=== PATIENT | male | born 1975 | race Caucasian/White ===

== ENCOUNTER 2016-12-08 18:49 | Emergency (ER) | payer MEDICAID, OTHER ==
[~2016-12-08] VITALS: Ht 177.8 cm; Wt 79.4 kg
[2016-12-08 18:53] VITALS: BP 118/90; PULSE 109; RESP 16; TEMP 97.9; O2SAT 97
[2016-12-08] MEDS ORDERED: SODIUM CHLOR 0.9% 1000 ML INJ 1,000 ML IV SCH (20:02)
--- NOTE | 2016-12-08 20:05 | PD ---
HPI Chief Complaint: Abdominal Pain Time Seen by Provider: 19:40 Travel History International Travel<30 days: No Contact w/Intl Traveler<30days: No Traveled to known affect area: No History of Present Illness HPI The patient is a 41-year-old male homeless alcoholic who complains of midline epigastric pain since this morning. He admits to drinking one beer today. The last time he was here is alcohol level is over 400. He denies any melanotic or bloody stools. He denies any nausea or vomiting or diarrhea. [facility] Social History Alcohol Use: Yes (1/2 gallon of vodka daily) Tobacco Use: Yes (cigars) Substance Use: Yes (ETOH daily - beer last night per pt; records indicate Vodka too. ) Allergies-Medications (Allergen,Severity, Reaction): Coded Allergies: No Known Allergies (Unverified , 12/08/16) Reported Meds & Prescriptions Reported Meds & Active Scripts Active No Active Prescriptions or Reported Medications Review of Systems Except as stated in HPI: all other systems reviewed are Neg Physical Exam Narrative GENERAL: The patient is alert, oriented 3 who smells of beer. His vital signs show heart rate of 109 but are otherwise normal. SKIN: Focused skin assessment warm/dry. HEAD: Atraumatic. Normocephalic. EYES: Pupils equal and round. No scleral icterus. No injection or drainage. ENT: No nasal bleeding or discharge. Mucous membranes pink and moist. NECK: Trachea midline. No JVD. CARDIOVASCULAR: Regular rate and rhythm. No murmur appreciated. RESPIRATORY: No accessory muscle use. Clear to auscultation. Breath sounds equal bilaterally. GASTROINTESTINAL: Abdomen soft, non-tender, nondistended. Hepatic and splenic margins not palpable. MUSCULOSKELETAL: No obvious deformities. No clubbing. No cyanosis. No edema. NEUROLOGICAL: Awake and alert. No obvious cranial nerve deficits. Motor grossly within normal limits. Normal speech. PSYCHIATRIC: The patient appears to be slightly intoxicated; insight and judgment normal. Data Data Last Documented VS Vital Signs Date Time Temp Pulse Resp B/P Pulse Ox O2 Delivery O2 Flow Rate FiO2 12/08/16 18:53 97.9 109 16 118/90 97 Orders Complete Blood Count With Diff (12/08/16 20:02) Comprehensive Metabolic Panel (12/08/16 20:02) Lipase (12/08/16 20:02) Urinalysis - C+S If Indicated (12/08/16 20:02) Iv Access Insert/Monitor (12/08/16 20:02) Ecg Monitoring (12/08/16 20:02) Oximetry (12/08/16 20:02) Ondansetron Inj (Zofran Inj) (12/08/16 20:15) Pantoprazole Inj (Protonix Inj) (12/08/16 20:15) Sodium Chlor 0.9% 1000 Ml Inj (Ns 1000 M (12/08/16 20:02) Sodium Chloride 0.9% Flush (Ns Flush) (12/08/16 20:15) Famotidine Inj (Pepcid Inj) (12/08/16 20:15) Al-Mag Hy-Si 40-40-4 Mg/Ml Liq (Mag-Al P (12/08/16 20:15) Lidocaine 2% Viscous (Xylocaine 2% Visco (12/08/16 20:15) Alcohol (Ethanol) (12/08/16 20:30) MDM Medical Decision Making Medical Screen Exam Complete: Yes Emergency Medical Condition: Yes Medical Record Reviewed: Yes Differential Diagnosis Alcohol intoxication, GERD, alcohol gastritis, malingering to obtain pain medications Narrative Course The patient requested something for pain. When he did not get it he left. The patient likely was malingering for pain medications. Diagnosis Primary Impression: Malingering Additional Impression: Alcohol abuse Additional Instructions: The patient was told to discontinue alcohol. Med/Other Pt SpecificInfo: No Change to Meds Scripts No Active Prescriptions or Reported Meds Disposition: 07 AGAINST MEDICAL ADVICE Condition: Leopoldo Arrieta MD Dec 08, 2016 20:05
[2016-12-08] MEDS ORDERED: PANTOPRAZOLE SODIUM 40 MG VIAL IVP ONE (20:15)
[2016-12-08] MEDS ORDERED: LIDOCAINE VISCOUS 2% SOLN 15 ML UDC PO ONE (20:15)
[2016-12-08] MEDS ORDERED: ONDANSETRON HCL 4 MG/2 ML VIAL IVP ONE (20:15)
[2016-12-08] MEDS ORDERED: ALUMINUM/MAGNESIUM/SIMETH 30 ML CUP PO ONE (20:15)
[2016-12-08] MEDS ORDERED: SODIUM CHLORIDE 0.9% FLUSH 10 ML FLUSH IV FLUSH PRN (20:15)
[2016-12-08] MEDS ORDERED: FAMOTIDINE 20 MG/2 ML VIAL IV PUSH ONE (20:15)
[2016-12-09] MEDS ORDERED: TRAM50TA PO (14:20)
== END 2016-12-08 20:35 | disposition left against medical advice (07) ==
LOC: PHED 18:49
DX: Z76.5 Malingerer [conscious simulation] (principal); F10.10 Alcohol abuse, uncomplicated; Z53.21 Procedure and treatment not carried out due to patient leaving prior to being seen by health care provider; Z72.0 Tobacco use
CPT/HCPCS: 99283

== ENCOUNTER 2016-12-09 12:13 | Emergency (ER) | payer MEDICAID, OTHER ==
[~2016-12-09] VITALS: Ht 177.8 cm; Wt 78.0 kg
[2016-12-09 12:15] VITALS: BP 130/88; PULSE 120; RESP 18; TEMP 97.8; O2SAT 98
--- NOTE | 2016-12-09 12:51 | PD ---
HPI Chief Complaint: Abdominal Pain Time Seen by Provider: 12:41 Travel History International Travel<30 days: No Contact w/Intl Traveler<30days: No Traveled to known affect area: No History of Present Illness HPI This patient complains of abdominal pain. Location is epigastrium. Severity is moderate. However it is improved spontaneously without alleviating factors and now is largely gone. No vomiting or diarrhea or fever. He is a local alcoholic who was seen here yesterday evening. He was diagnosed with malingering. He left after he didn't get pain medication. PFSH Past Medical History ?: Not Social History Alcohol Use: Yes (1/2 gallon of vodka daily) Tobacco Use: Yes (cigars) Substance Use: Yes (ETOH daily - beer last night per pt; records indicate Vodka too. ) Allergies-Medications (Allergen,Severity, Reaction): Coded Allergies: No Known Allergies (Unverified , 12/09/16) Reported Meds & Prescriptions Reported Meds & Active Scripts Active No Active Prescriptions or Reported Medications Review of Systems General / Constitutional: No: Fever Eyes: No: Visual changes HENT: No: Headaches Cardiovascular: No: Chest Pain or Discomfort Respiratory: No: Shortness of Breath Gastrointestinal: Positive: Abdominal Pain Genitourinary: No: Dysuria Musculoskeletal: No: Pain Skin: No Rash Neurologic: No: Weakness Psychiatric: Positive: Substance Abuse, No: Depression Endocrine: No: Polydipsia Hematologic/Lymphatic: No: Easy Bruising Physical Exam Narrative GENERAL: Well-nourished, well-developed patient in no apparent distress. SKIN: Focused skin assessment reveals no rash and nodules. Skin is Warm and dry. HEAD: Atraumatic. Normocephalic. EYES: Pupils equal and round. No scleral icterus. No injection or drainage. ENT: No nasal bleeding or discharge. Mucous membranes pink and moist. NECK: Trachea midline. No JVD. CARDIOVASCULAR: Regular rate and rhythm. No murmur appreciated. RESPIRATORY: No accessory muscle use. Clear to auscultation. Breath sounds equal bilaterally. GASTROINTESTINAL: Abdomen soft, non-tender, nondistended. Hepatic and splenic margins not palpable. MUSCULOSKELETAL: No obvious deformities. No clubbing. No cyanosis. No edema. NEUROLOGICAL: Awake and alert. No obvious cranial nerve deficits. Motor grossly within normal limits. Normal speech. PSYCHIATRIC: Appropriate mood and affect; insight and judgment poor. Data Data Last Documented VS Vital Signs Date Time Temp Pulse Resp B/P Pulse Ox O2 Delivery O2 Flow Rate FiO2 12/09/16 12:15 97.8 120 18 130/88 98 Orders Iv Access Insert/Monitor (12/09/16 12:48) Complete Blood Count With Diff (12/09/16 12:48) Comprehensive Metabolic Panel (12/09/16 12:48) Lipase (12/09/16 12:48) Alcohol (Ethanol) (12/09/16 13:06) Labs Laboratory Tests Test 12/09/16 13:06 White Blood Count 11.9 TH/MM3 Red Blood Count 4.43 MIL/MM3 Hemoglobin 14.6 GM/DL Hematocrit 43.1 % Mean Corpuscular Volume 97.3 FL Mean Corpuscular Hemoglobin 33.0 PG Mean Corpuscular Hemoglobin 33.9 % Concent Red Cell Distribution Width 13.4 % Platelet Count 343 TH/MM3 Mean Platelet Volume 6.9 FL Neutrophils (%) (Auto) 78.8 % Lymphocytes (%) (Auto) 12.2 % Monocytes (%) (Auto) 5.6 % Eosinophils (%) (Auto) 0.4 % Basophils (%) (Auto) 3.0 % Neutrophils # (Auto) 9.4 TH/MM3 Lymphocytes # (Auto) 1.4 TH/MM3 Monocytes # (Auto) 0.7 TH/MM3 Eosinophils # (Auto) 0.0 TH/MM3 Basophils # (Auto) 0.4 TH/MM3 CBC Comment DIFF FINAL Differential Comment Sodium Level 140 MEQ/L Potassium Level 3.3 MEQ/L Chloride Level 103 MEQ/L Carbon Dioxide Level 27.0 MEQ/L Anion Gap 10 MEQ/L Blood Urea Nitrogen 6 MG/DL Creatinine 0.85 MG/DL Estimat Glomerular Filtration 100 ML/MIN Rate Random Glucose 99 MG/DL Calcium Level 8.8 MG/DL Total Bilirubin 0.4 MG/DL Aspartate Amino Transf 21 U/L (AST/SGOT) Alanine Aminotransferase 17 U/L (ALT/SGPT) Alkaline Phosphatase 189 U/L Total Protein 8.0 GM/DL Albumin 3.2 GM/DL Lipase 335 U/L Ethyl Alcohol Level 114 MG/DL [facility] Medical Decision Making Medical Screen Exam Complete: Yes Emergency Medical Condition: Yes Medical Record Reviewed: Yes Differential Diagnosis Differential diagnosis includes pancreatitis, biliary colic, hepatitis, GERD, peptic ulcer disease. Narrative Course I have reviewed the patient's electronic medical record. Reviewed his visit from last night IV placed CBC is normal Metabolic profile is normal LFTs are normal Lipase is normal Alcohol level is 114 Patient's abdomen is soft and benign and nontender. His pain has resolved. I wrote him a dozen tramadol. He is warned not to use it with alcohol and to watch for sedation. He needs to quit drinking and follow up with [facility] rehabilitation services Diagnosis Primary Impression: Acute epigastric pain Additional Impression: Alcohol intoxication in active alcoholic Qualified Code: F10.229 - Alcohol intoxication in active alcoholic, with unspecified complication Additional Instructions: The patient was advised to follow up with their physician and return if they worsen. The patient was warned about potential sedation for the medications they will receive on prescription. Recommend [facility] services Med/Other Pt SpecificInfo: Prescription(s) given Scripts Tramadol 50 Mg Tab50 Mg PO Q6H PRN (PAIN) #12 TAB Ref 0 Prov:Landon Rubin MD 12/09/16 Disposition: 01 DISCHARGE HOME Condition: Stable Landon Rubin MD Dec 09, 2016 12:51
[2016-12-09 13:20] LABS: AUTOMATED NEUTROPHIL # 9.4 TH/MM3 (1.8-7.7); BASOPHIL # 0.4 TH/MM3 (0-0.2); EOSINOPHIL % 0.4 % (0.0-4.0); HEMATOCRIT 43.1 % (39.0-51.0); LYMPH % 12.2 % (9.0-44.0); LYMPHOCYTE # 1.4 TH/MM3 (1.0-4.8); MEAN CELL VOLUME 97.3 FL (80.0-100.0); MEAN CORPUSCULAR HGB CONC 33.9 % (32.0-36.0); MONO % 5.6 % (0.0-8.0); NEUT % 78.8 % (16.0-70.0); PLATELET COUNT 343 TH/MM3 (150-450); RED BLOOD COUNT 4.43 MIL/MM3 (4.50-5.90); RED CELL DISTRIBUTION WIDTH 13.4 % (11.6-17.2); WHITE BLOOD COUNT 11.9 TH/MM3 (4.0-11.0)
[2016-12-09 13:24] LABS: HEMO FLAGS DIFF FINAL
[2016-12-09 13:30] LABS: CHLORIDE 103 MEQ/L (98-107); POTASSIUM 3.3 MEQ/L (3.5-5.1); SODIUM (NA) 140 MEQ/L (136-145)
[2016-12-09 13:37] LABS: ANION GAP 10 MEQ/L (5-15); BLOOD UREA NITROGEN 6 MG/DL (7-18)
[2016-12-09 13:39] LABS: ALT (GPT) 17 U/L (12-78); AST (GOT) 21 U/L (15-37)
[2016-12-09 13:40] LABS: GLOMERULAR FILTRATION RATE 100 ML/MIN (>89)
[2016-12-09 13:41] LABS: TOTAL BILIRUBIN ADULT 0.4 MG/DL (0.2-1.0)
[2016-12-09 13:42] LABS: ALKALINE PHOSPHATASE 189 U/L (45-117)
[2016-12-09] MEDS ORDERED: TRAM50TA PO (14:20)
== END 2016-12-09 14:38 | disposition home or self-care (01) ==
LOC: PHED 12:13
DX: R10.13 Epigastric pain (principal); F10.229 Alcohol dependence with intoxication, unspecified; Y90.5 Blood alcohol level of 100-119 mg/100 ml; Z72.0 Tobacco use
CPT/HCPCS: 80053; 80307; 83690; 85025; 99284

== ENCOUNTER 2017-10-14 16:48 | Inpatient (IN) | payer MEDICAID ==
[~2017-10-14] VITALS: Ht 177.8 cm; Wt 77.8 kg
[~2017-10-14 16:48] MED LIST: TRAM50TA PO
[2017-10-14 16:53] VITALS: BP 140/93; PULSE 111; RESP 18; TEMP 97.4; O2SAT 99
[2017-10-14] MEDS ORDERED: SODIUM CHLOR 0.9% 1000 ML INJ 1,000 ML IV SCH (17:37)
[2017-10-14] MEDS ORDERED: ONDANSETRON HCL 4 MG/2 ML VIAL IVP ONE (17:45)
[2017-10-14] MEDS ORDERED: SODIUM CHLORIDE 0.9% FLUSH 10 ML FLUSH IV FLUSH PRN ×2 (17:45→21:00)
[2017-10-14] MEDS ORDERED: KETOROLAC TROMETHAMINE 30 MG/ML (IVP) VIAL IVP ONE (17:45)
--- NOTE | 2017-10-14 17:48 | PD ---
HPI Chief Complaint: Abdominal Pain Time Seen by Provider: 17:30 Travel History International Travel<30 days: No Contact w/Intl Traveler<30days: No Traveled to known affect area: No History of Present Illness HPI This is a 42-year-old male with history of pancreatitis who presents for abdominal pain. He states that he has had 3 days of epigastric pain. Crampy in nature. Onset gradual. Aggravated by drinking alcohol. He states that the first 2 days, he had a few episodes of nausea and nonbilious, nonbloody emesis but none since. He is trying to drink plenty of water. No diarrhea, melena, hematochezia. No urinary urgency, frequency, dysuria, hematuria. Prior treatment includes aspirin which is an alleviating factor. No associated fever , chills, cough, congestion. No chest pain or shortness of breath. Patient adamantly and repeatedly denies IV drug abuse. PFSH Past Medical History Diminished Hearing: No Pancreatitis: Yes Past Surgical History Surgical History: No Previous Surgery Social History Alcohol Use: Yes (heavy) Tobacco Use: Yes (cigars) Substance Use: No Allergies-Medications (Allergen,Severity, Reaction): Coded Allergies: No Known Allergies (Unverified Adverse Reaction, Unknown, 10/14/17) Reported Meds & Prescriptions Reported Meds & Active Scripts Active Review of Systems Except as stated in HPI: all other systems reviewed are Neg Physical Exam Narrative GENERAL: Alert, well nourished, well appearing patient resting on the bed in no acute distress. Vital Signs reviewed SKIN: Focused skin assessment warm/dry. HEAD: Atraumatic. Normocephalic. EYES: Pupils equal and round. No scleral icterus. No injection or drainage. ENT: No nasal bleeding or discharge. Mucous membranes pink and moist. NECK: Trachea midline. No JVD. Spontaneous, painless full range of motion with no meningismus CARDIOVASCULAR: Regular rate and rhythm. No murmur appreciated. Extremities warm and well perfused with bounding peripheral pulses RESPIRATORY: No accessory muscle use. Clear to auscultation. Breath sounds equal bilaterally. Breathing easily and speaking in full sentences GASTROINTESTINAL: Abdomen soft, Minimally tender in epigastrium, not present on distracted exam,, nondistended. Normal bowel sounds. No rigid, rebound, guarding. No tenderness at McBurney's point. Negative Treadwell sign MUSCULOSKELETAL: No obvious deformities. No clubbing. No cyanosis. No edema. Compartments are soft NEUROLOGICAL: Awake and alert. No obvious cranial nerve deficits. Motor grossly within normal limits. Normal speech. Sensation intact. Normal gait PSYCHIATRIC: Appropriate mood and affect; insight and judgment normal. Data Data Last Documented VS Vital Signs Date Time Temp Pulse Resp B/P (MAP) Pulse Ox O2 Delivery O2 Flow Rate FiO2 10/14/17 19:00 99 16 129/80 (96) 100 Room Air 10/14/17 16:53 97.4 Orders Orders Urinalysis - C+S If Indicated (10/14/17 17:05) Complete Blood Count With Diff (10/14/17 17:37) Comprehensive Metabolic Panel (10/14/17 17:37) Lipase (10/14/17 17:37) Ct Abd/Pel W Iv Contrast(Rout) (10/14/17 17:37) Iv Access Insert/Monitor (10/14/17 17:37) Ecg Monitoring (10/14/17 17:37) Oximetry (10/14/17 17:37) Ondansetron Inj (Zofran Inj) (10/14/17 17:45) Sodium Chlor 0.9% 1000 Ml Inj (Ns 1000 M (10/14/17 17:37) Sodium Chloride 0.9% Flush (Ns Flush) (10/14/17 17:45) Ketorolac Inj (Toradol Inj) (10/14/17 17:45) Iohexol 350 Inj (Omnipaque 350 Inj) (10/14/17 18:29) Morphine Inj (Morphine Inj) (10/14/17 19:00) Labs Laboratory Tests Test 10/14/17 17:55 White Blood Count 8.0 TH/MM3 Red Blood Count 4.69 MIL/MM3 Hemoglobin 16.6 GM/DL Hematocrit 46.1 % Mean Corpuscular Volume 98.2 FL Mean Corpuscular Hemoglobin 35.4 PG Mean Corpuscular Hemoglobin Concent 36.1 % Red Cell Distribution Width 13.3 % Platelet Count 282 TH/MM3 Mean Platelet Volume 7.9 FL Neutrophils (%) (Auto) 67.1 % Lymphocytes (%) (Auto) 22.7 % Monocytes (%) (Auto) 7.2 % Eosinophils (%) (Auto) 1.3 % Basophils (%) (Auto) 1.7 % Neutrophils # (Auto) 5.4 TH/MM3 Lymphocytes # (Auto) 1.8 TH/MM3 Monocytes # (Auto) 0.6 TH/MM3 Eosinophils # (Auto) 0.1 TH/MM3 Basophils # (Auto) 0.1 TH/MM3 CBC Comment AUTO DIFF Blood Urea Nitrogen 11 MG/DL Creatinine 0.84 MG/DL Random Glucose 79 MG/DL Total Protein 8.8 GM/DL Albumin 3.9 GM/DL Calcium Level 9.3 MG/DL Alkaline Phosphatase 101 U/L Aspartate Amino Transf (AST/SGOT) 13 U/L Alanine Aminotransferase (ALT/SGPT) 12 U/L Total Bilirubin 0.4 MG/DL Sodium Level 132 MEQ/L Potassium Level 3.6 MEQ/L Chloride Level 100 MEQ/L Carbon Dioxide Level 21.8 MEQ/L Anion Gap 10 MEQ/L Estimat Glomerular Filtration Rate 101 ML/MIN Lipase 574 U/L [facility] Medical Decision Making Medical Screen Exam Complete: Yes Emergency Medical Condition: Yes Medical Record Reviewed: Yes Interpretation(s) Last 24 hours Impressions Abdomen/Pelvis CT 10/14/17 [id number] Signed Impressions: Service Date/Time: Saturday, October 14, 2017 18:15 - CONCLUSION: Abnormal proximal pancreas with imaging features characteristic of acute on chronic pancreatitis. There is mild dilatation of the pancreatic duct body and tell up to 3.5 mm. Regional adenopathy and small caliber varices in the gastrohepatic ligament. Federico Young MD Differential Diagnosis Gastritis, peptic ulcer disease, alcohol abuse, pancreatitis, biliary colic Narrative Course IV access was established. Labs, imaging were ordered. As of change of shift, patient's workup is still in progress. Care has been signed out to the oncoming emergency physician. Further evaluation, care and disposition decisions will be per Dr. Yarbrough. Diagnosis Primary Impression: Acute pancreatitis Qualified Codes: K85.90 - Acute pancreatitis without necrosis or infection, unspecified Ivanna Jimenez MD Oct 14, 2017 17:48
[2017-10-14 18:07] VITALS: O2SAT 98
[2017-10-14] MEDS ORDERED: IOHEXOL 350 MG/ML 10 ML VIAL (for RAD DIAG) IVCONTRAST ONE (18:29)
[2017-10-14 18:41] LABS: AUTOMATED NEUTROPHIL # 5.4 TH/MM3 (1.8-7.7); BASOPHIL # 0.1 TH/MM3 (0-0.2); BASOPHIL % 1.7 % (0.0-2.0); EOSINOPHIL # 0.1 TH/MM3 (0-0.4); EOSINOPHIL % 1.3 % (0.0-4.0); HEMATOCRIT 46.1 % (39.0-51.0); HEMOGLOBIN 16.6 GM/DL (13.0-17.0); LYMPH % 22.7 % (9.0-44.0); LYMPHOCYTE # 1.8 TH/MM3 (1.0-4.8); MEAN CELL VOLUME 98.2 FL (80.0-100.0); MEAN CORPUSCULAR HEMOGLOBIN 35.4 PG (27.0-34.0); MEAN PLATELET VOLUME 7.9 FL (7.0-11.0); MONO % 7.2 % (0.0-8.0); MONOCYTE # 0.6 TH/MM3 (0-0.9); NEUT % 67.1 % (16.0-70.0); PLATELET COUNT 282 TH/MM3 (150-450); RED BLOOD COUNT 4.69 MIL/MM3 (4.50-5.90); RED CELL DISTRIBUTION WIDTH 13.3 % (11.6-17.2)
--- NOTE | 2017-10-14 18:43 | RADRPT ---
EXAM DATE/TIME: 10/14/2017 18:15 [facility] COMPARISON: No previous studies available for comparison. INDICATIONS : Abdominal pain x 3 days. IV CONTRAST: 75 cc Omnipaque 350 (iohexol) IV ORAL CONTRAST: No oral contrast ingested. RADIATION DOSE: 10.69 CTDIvol (mGy) MEDICAL HISTORY : Pancreatitis. Heavy alcohol SURGICAL HISTORY : None. ENCOUNTER: Initial ACUITY: 3 days PAIN SCALE: 10/10 LOCATION: abdominal diffuse TECHNIQUE: Volumetric scanning of the abdomen and pelvis was performed. Using automated exposure control and ad justment of the mA and/or kV according to patient size, radiation dose was kept as low as reasonably achievable to obtain optimal diagnostic quality images. DICOM format image data is available electro nically for review and comparison. FINDINGS: Lung bases are clear. Osseous structures are intact. No pleural or pericardial effusions. Liver unrem arkable. Spleen, adrenals, kidneys, urinary bladder unremarkable. Prostatic calcifications are noted. No evidence of bowel obstruction. There are small caliber varices noted in the gastrohepatic ligamen t. There are inflammatory changes seen and masslike enlargement of the head and uncinate process of t he pancreas with multiple punctate calcifications seen. On axial image 32 this measures 5.7 x 3 8 cm in transverse and AP dimension. There is mild induration of the peripancreatic fat and increased numb er of regional lymph nodes are noted in this region. The gallbladder is contracted. CONCLUSION: Abnormal proximal pancreas with imaging features characteristic of acute on chronic pancreatitis. The re is mild dilatation of the pancreatic duct body and tell up to 3.5 mm. Regional adenopathy and smal l caliber varices in the gastrohepatic ligament. Federico Young MD on October 14, 2017 at 18:40 Board Certified Radiologist. This report was verified electronically.
[2017-10-14 18:47] LABS: CHLORIDE 100 MEQ/L (98-107); SODIUM (NA) 132 MEQ/L (136-145)
[2017-10-14 18:51] LABS: ALBUMIN 3.9 GM/DL (3.4-5.0); CALCIUM 9.3 MG/DL (8.5-10.1)
[2017-10-14 18:52] LABS: BICARBONATE 21.8 MEQ/L (21.0-32.0); BLOOD UREA NITROGEN 11 MG/DL (7-18); GLUCOSE,RANDOM 79 MG/DL (74-106)
[2017-10-14 18:54] LABS: ALT (GPT) 12 U/L (12-78); AST (GOT) 13 U/L (15-37); BILIRUBIN, URINE NEG (NEG); BLOOD, URINE NEG (NEG); CREATININE 0.84 MG/DL (0.60-1.30); GLOMERULAR FILTRATION RATE 101 ML/MIN (>89); GLUCOSE,URINE NEG (NEG); KETONE, URINE TRACE mg/dL (NEG); NITRITE,URINE NEG (NEG); PH, URINE 6.5 (5.0-8.5); URINE COLOR YELLOW (YELLW/STRAW); URINE LEUKOCYTE ESTERASE NEG (NEG)
[2017-10-14 18:56] LABS: TOTAL BILIRUBIN ADULT 0.4 MG/DL (0.2-1.0); TOTAL PROTEIN 8.8 GM/DL (6.4-8.2)
[2017-10-14 18:57] LABS: ALKALINE PHOSPHATASE 101 U/L (45-117)
[2017-10-14 18:58] LABS: MEAN CORPUSCULAR HGB CONC 36.1 % (32.0-36.0)
[2017-10-14 19:00] VITALS: BP 129/80; PULSE 99; RESP 16; O2SAT 100
[2017-10-14] MEDS ORDERED: MORPHINE SULFATE 4 MG/ML INJ IV PUSH ONE (19:00)
[2017-10-14 19:16] LABS: AMORPHOUS SEDIMENT, URINE MOD; MUCUS URINE OCC /lpf (OCC); SQUAMOUS EPITHELIAL CELL URINE 0-5 /hpf (0-5)
--- NOTE | 2017-10-14 20:15 | RADRPT ---
EXAM DATE/TIME: 10/14/2017 19:41 [facility] COMPARISON: CT ABDOMEN & PELVIS W CONTRAST, October 14, 2017, 18:15. INDICATIONS : Right upper quadrant pain. MEDICAL HISTORY : Pancreatitis. Alcohol use. Tobacco use. SURGICAL HISTORY : None. ENCOUNTER: Initial ACUITY: 7-11 months PAIN SCORE: 5/10 LOCATION: Right upper quadrant MEASUREMENTS: LIVER: 17.1 cm length COMMON DUCT: 4 mm RIGHT KIDNEY: 10.3 x 4.9 x 5.2 cm FINDINGS: LIVER: Mild hepatomegaly without focal mass. COMMON DUCT: No intraluminal mass or stone visualized. GALLBLADDER: There are no gallstones however there is mild wall thickening. The gallbladder is mildly contracted. PANCREAS: Not clearly seen. RIGHT KIDNEY: No evidence of hydronephrosis, stone, or mass. CONCLUSION: 1. There is mild gallbladder wall thickening which appears mildly contracted. No pericholecystic flui d or cholelithiasis. 2. Pancreas not seen. 3. Borderline hepatomegaly. Federico Young MD on October 14, 2017 at 20:13 Board Certified Radiologist. This report was verified electronically.
[2017-10-14 20:45] VITALS: BP 125/77; PULSE 87; RESP 16; O2SAT 100
[2017-10-14] MEDS ORDERED: LORazepam 2 MG/ML VIAL IV PUSH PRN ×8 (20:45→21:00)
[2017-10-14] MEDS ORDERED: LORazepam 1 MG TAB PO PRN (20:45)
[2017-10-14] MEDS ORDERED: FLUMAZENIL 0.5 MG/5 ML VIAL IV PUSH PRN ×2 (20:45→21:00)
[2017-10-14] MEDS ORDERED: LORazepam 2 MG TAB PO PRN (20:45)
--- NOTE | 2017-10-14 20:48 | PD ---
Physical Exam Narrative Patient's anatomy it should change, pending remainder laboratory examinations and reevaluation. Patient is a chronic alcoholic who has a history of pancreatitis in the past,, who has an elevated lipase, epigastric pain, and CT that reveals a chronic pancreatitis with possible chronic phlegmon with acute inflammation surrounding. Patient's workup augmented by a right upper quadrant ultrasound gallbladder is contracted, there is no dilated common duct seen. Case was discussed with hospitalist service Emili nurse practitioner, accepted under Dr. Medrano's service for admission to the [facility] for acute pancreatitis. Patient was put on CIWA protocol Data Data Last Documented VS Vital Signs Date Time Temp Pulse Resp B/P (MAP) Pulse Ox O2 Delivery O2 Flow Rate FiO2 10/14/17 19:00 99 16 129/80 (96) 100 Room Air 10/14/17 16:53 97.4 Orders Orders Urinalysis - C+S If Indicated (10/14/17 17:05) Complete Blood Count With Diff (10/14/17 17:37) Comprehensive Metabolic Panel (10/14/17 17:37) Lipase (10/14/17 17:37) Ct Abd/Pel W Iv Contrast(Rout) (10/14/17 17:37) Iv Access Insert/Monitor (10/14/17 17:37) Ecg Monitoring (10/14/17 17:37) Oximetry (10/14/17 17:37) Ondansetron Inj (Zofran Inj) (10/14/17 17:45) Sodium Chlor 0.9% 1000 Ml Inj (Ns 1000 M (10/14/17 17:37) Sodium Chloride 0.9% Flush (Ns Flush) (10/14/17 17:45) Ketorolac Inj (Toradol Inj) (10/14/17 17:45) Iohexol 350 Inj (Omnipaque 350 Inj) (10/14/17 18:29) Morphine Inj (Morphine Inj) (10/14/17 19:00) Us Abdomen Gallbladder (10/14/17 ) Admit Order (Ed Use Only) (10/14/17 20:43) Alcohol Withdrawal Asmt-Ciwa Q4HX18 (10/14/17 20:43) Flumazenil Inj (Romazicon Inj) (10/14/17 20:45) Lorazepam (Ativan) (10/14/17 20:45) Lorazepam Inj (Ativan Inj) (10/14/17 20:45) Lorazepam (Ativan) (10/14/17 20:45) Lorazepam Inj (Ativan Inj) (10/14/17 20:45) Lorazepam Inj (Ativan Inj) (10/14/17 20:45) Lorazepam Inj (Ativan Inj) (10/14/17 20:45) Labs Laboratory Tests Test 10/14/17 17:55 White Blood Count 8.0 TH/MM3 Red Blood Count 4.69 MIL/MM3 Hemoglobin 16.6 GM/DL Hematocrit 46.1 % Mean Corpuscular Volume 98.2 FL Mean Corpuscular Hemoglobin 35.4 PG Mean Corpuscular Hemoglobin Concent 36.1 % Red Cell Distribution Width 13.3 % Platelet Count 282 TH/MM3 Mean Platelet Volume 7.9 FL Neutrophils (%) (Auto) 67.1 % Lymphocytes (%) (Auto) 22.7 % Monocytes (%) (Auto) 7.2 % Eosinophils (%) (Auto) 1.3 % Basophils (%) (Auto) 1.7 % Neutrophils # (Auto) 5.4 TH/MM3 Lymphocytes # (Auto) 1.8 TH/MM3 Monocytes # (Auto) 0.6 TH/MM3 Eosinophils # (Auto) 0.1 TH/MM3 Basophils # (Auto) 0.1 TH/MM3 CBC Comment AUTO DIFF Differential Comment AUTO DIFF CONFIRMED Platelet Estimate NORMAL Platelet Morphology Comment NORMAL Urine Collection Type CLEAN CATCH Urine Color YELLOW Urine Turbidity SL CLOUDY Urine pH 6.5 Urine Specific [place] 1.015 Urine Protein TRACE mg/dL Urine Glucose (UA) NEG mg/dL Urine Ketones TRACE mg/dL Urine Occult Blood NEG Urine Nitrite NEG Urine Bilirubin NEG Urine Urobilinogen 0.2 MG/DL Urine Leukocyte Esterase NEG Urine Squamous Epithelial Cells 0-5 /hpf Urine Amorphous Sediment MOD Urine Mucus OCC /lpf Microscopic Urinalysis Comment CULT NOT INDICATED Blood Urea Nitrogen 11 MG/DL Creatinine 0.84 MG/DL Random Glucose 79 MG/DL Total Protein 8.8 GM/DL Albumin 3.9 GM/DL Calcium Level 9.3 MG/DL Alkaline Phosphatase 101 U/L Aspartate Amino Transf (AST/SGOT) 13 U/L Alanine Aminotransferase (ALT/SGPT) 12 U/L Total Bilirubin 0.4 MG/DL Sodium Level 132 MEQ/L Potassium Level 3.6 MEQ/L Chloride Level 100 MEQ/L Carbon Dioxide Level 21.8 MEQ/L Anion Gap 10 MEQ/L Estimat Glomerular Filtration Rate 101 ML/MIN Lipase 574 U/L [facility] Medical Record Reviewed: Yes Supervised Visit with HERBIE: Yes Differential Diagnosis Chronic alcoholism, acute on chronic pancreatitis Narrative Course See narrative above Diagnosis Primary Impression: Acute pancreatitis Qualified Codes: K85.90 - Acute pancreatitis without necrosis or infection, unspecified Additional Impression: Chronic alcoholism Admitting Information Admitting Physician Requests: Admit Adolph Yarbrough MD Oct 14, 2017 20:48
[2017-10-14] MEDS ORDERED: ACETAMINOPHEN 325 MG TAB PO PRN (21:00)
[2017-10-14] MEDS ORDERED: ONDANSETRON HCL 4 MG/2 ML VIAL IVP PRN (21:00)
[2017-10-14] MEDS ORDERED: NALOXONE HCL 0.4 MG/ML AMP IV PUSH PRN (21:00)
[2017-10-14] MEDS ORDERED: THIAMINE INJ 100 MG in SODIUM CHLORIDE 0.9% INJ 100 ML IV SCH (21:00)
[2017-10-14] MEDS: MORPHINE SULFATE 4 MG/ML INJ IV PUSH PRN (21:38)
[2017-10-14 22:33] VITALS: BP 128/68
[2017-10-15] VITALS: BP 144/88; PULSE 73; RESP 18; TEMP 96.4; O2SAT 100
[2017-10-15] MEDS: SODIUM CHLORIDE 0.9% FLUSH 10 ML FLUSH IV FLUSH SCH ×2 (00:29→09:00)
[2017-10-15] MEDS: SODIUM CHLOR 0.9% 1000 ML INJ 1,000 ML IV SCH ×2 (00:29→06:31)
[2017-10-15] MEDS: MORPHINE SULFATE 4 MG/ML INJ IV PUSH PRN ×2 (00:45→07:56)
[2017-10-15 07:10] LABS: AUTOMATED NEUTROPHIL # 4.1 TH/MM3 (1.8-7.7); BASOPHIL # 0.1 TH/MM3 (0-0.2); BASOPHIL % 1.4 % (0.0-2.0); EOSINOPHIL # 0.2 TH/MM3 (0-0.4); EOSINOPHIL % 2.4 % (0.0-4.0); HEMATOCRIT 43.9 % (39.0-51.0); HEMOGLOBIN 15.2 GM/DL (13.0-17.0); LYMPH % 25.6 % (9.0-44.0); LYMPHOCYTE # 1.7 TH/MM3 (1.0-4.8); MEAN CORPUSCULAR HEMOGLOBIN 34.3 PG (27.0-34.0); MEAN CORPUSCULAR HGB CONC 34.6 % (32.0-36.0); MEAN PLATELET VOLUME 7.8 FL (7.0-11.0); MONO % 8.3 % (0.0-8.0); MONOCYTE # 0.6 TH/MM3 (0-0.9); NEUT % 62.3 % (16.0-70.0); PLATELET COUNT 281 TH/MM3 (150-450); RED BLOOD COUNT 4.44 MIL/MM3 (4.50-5.90); WHITE BLOOD COUNT 6.7 TH/MM3 (4.0-11.0)
[2017-10-15 07:21] LABS: BICARBONATE 22.1 MEQ/L (21.0-32.0); CALCIUM 9.1 MG/DL (8.5-10.1)
[2017-10-15 07:24] LABS: CREATININE 0.76 MG/DL (0.60-1.30)
[2017-10-15 08:00] VITALS: BP 126/78; PULSE 75; RESP 18; TEMP 97.2; O2SAT 99
[2017-10-15] MEDS ORDERED: ACETAMINOPHEN/HYDROcodone 325 MG/5 MG TAB PO PRN ×2 (09:15)
--- NOTE | 2017-10-15 09:21 | HHI.HP ---
[facility] Primary Care Physician No Primary Care Physician Admission Diagnosis Pancreatitis, Chronic Alcoholism Diagnoses: Chief Complaint: Pancreatitis Travel History International Travel<30 Days: No Contact w/Intl Traveler <30 Da: No Traveled to Known Affected Are: No History of Present Illness This is a 42-year-old male with history of chronic pancreatitis and alcohol abuse complaining of abdominal pain. Patient stated that abdominal pain started about 2 days ago. He said that he was drinking couple beers but stopped drinking 2 days ago when he started having abdominal pain. He stated that this is the same abdominal pain that he gets when his pancreatitis flares up. Abdominal pain located in the the mid abdomen and radiates to the back. He denies any nausea or vomiting. Patient asking to go home today. He stated that he is able to eat and pain has improved. Denies any fevers or chills. Patient continues to drink and stated that he did not know that he had to stop drinking in order to prevent his pancreatitis. All other review of system reviewed and negative. Past Family Social History Past Medical History Chronic pancreatitis Past Surgical History Denies any past surgical history. Reported Medications NONE Allergies: Coded Allergies: No Known Allergies (Unverified Adverse Reaction, Unknown, 10/14/17) Active Ordered Medications Current Medications Ondansetron HCl (Zofran Inj) 4 mg ONCE ONCE IVP Last administered on 10/14/17at 18:04; Start 10/14/17 at 17:45; Stop 10/14/17 at 17:46; Status DC Sodium Chloride 1,000 ml @ 1,000 mls/hr Q1H IV Last administered on 10/14/17at 18:03; Start 10/14/17 at 17:37; Stop 10/14/17 at 18:36; Status DC Sodium Chloride (NS Flush) 2 ml UNSCH PRN IV FLUSH FLUSH AFTER USING IV ACCESS ; Start 10/14/17 at 17:45; Stop 10/14/17 at 21:22; Status DC Ketorolac Tromethamine (Toradol Inj) 30 mg ONCE ONCE IVP Last administered on 10/14/17at 18:03; Start 10/14/17 at 17:45; Stop 10/14/17 at 17:46; Status DC Iohexol (Omnipaque 350 Inj) 75 ml STK-MED ONCE IVCONTRAST Last administered on 10/14/17at 18:29; Start 10/14/17 at 18:29; Stop 10/14/17 at 18:30; Status DC Morphine Sulfate (Morphine Inj) 4 mg ONCE ONCE IV PUSH Last administered on 10/14/17at 18:56; Start 10/14/17 at 19:00; Stop 10/14/17 at 19:01; Status DC Flumazenil (Romazicon Inj) 0.2 mg Q1M PRN IV PUSH SEE LABEL COMMENTS; Start 10/14/17 at 20:45; Stop 10/14/17 at 21:24; Status DC Lorazepam (Ativan) 1 mg Q4H PRN PO CIWA 8 - 10; Start 10/14/17 at 20:45 Lorazepam (Ativan Inj) 1 mg Q4H PRN IV PUSH CIWA 8 - 10; Start 10/14/17 at 20:45 Lorazepam (Ativan) 2 mg Q2H PRN PO CIWA 11-14; Start 10/14/17 at 20:45 Lorazepam (Ativan Inj) 2 mg Q2H PRN IV PUSH CIWA 11-14; Start 10/14/17 at 20:45 Lorazepam (Ativan Inj) 2 mg Q1H PRN IV PUSH CIWA 15-20 Last administered on 10/15at 00:47; Start 10/14/17 at 20:45 Lorazepam (Ativan Inj) 2 mg Q15M PRN IV PUSH CIWA > 20; Start 10/14/17 at 20:45 Sodium Chloride 1,000 ml @ 100 mls/hr Q10H IV Last administered on 10/15/17at 06 :31; Start 10/14/17 at 20:54 Sodium Chloride (NS Flush) 2 ml UNSCH PRN IV FLUSH FLUSH AFTER USING IV ACCESS ; Start 10/14/17 at 21:00 Sodium Chloride (NS Flush) 2 ml BID IV FLUSH Last administered on 10/15/17at 00: 29; Start 10/14/17 at 21:00 Acetaminophen (Tylenol) 650 mg Q4H PRN PO TEMP > 100.4; Start 10/14/17 at 21:00 Ondansetron HCl (Zofran Inj) 4 mg Q6H PRN IVP NAUSEA OR VOMITING Last administered on 10/14/17at 21:37; Start 10/14/17 at 21:00 Naloxone HCl (Narcan Inj) 0.4 mg UNSCH PRN IV PUSH SEE LABEL COMMENTS; Start at 21:00 Morphine Sulfate (Morphine Inj) 2 mg Q3H PRN IV PUSH pain Last administered on 10/15/17at 07:56; Start 10/14/17 at 21:00 Thiamine HCl 100 mg/Sodium Chloride 101 ml @ 100 mls/hr Q24H IV Last administered on 10/14/17at 21:38; Start 10/14/17 at 21:00; Stop 10/17/17 at 20:59 Flumazenil (Romazicon Inj) 0.2 mg Q1M PRN IV PUSH SEE LABEL COMMENTS; Start 10/14/17 at 21:00 Lorazepam (Ativan Inj) 1 mg Q4H PRN IV PUSH CIWA 8 - 10; Start 10/14/17 at 21:00 ; Stop 10/14/17 at 21:23; Status DC Lorazepam (Ativan Inj) 2 mg Q2H PRN IV PUSH CIWA 11-14; Start 10/14/17 at 21:00 ; Stop 10/14/17 at 21:23; Status DC Lorazepam (Ativan Inj) 2 mg Q1H PRN IV PUSH CIWA 15-20; Start 10/14/17 at 21:00 ; Stop 10/14/17 at 21:23; Status DC Lorazepam (Ativan Inj) 2 mg Q15M PRN IV PUSH CIWA > 20; Start 10/14/17 at 21:00 ; Stop 10/14/17 at 21:23; Status DC Family History Father had liver cancer Social History Drinks a couple beers a day. Smokes 1 pack per day of tobacco for 25+ years. Denies illicit drug use. Physical Exam Vital Signs Vital Signs Date Time Temp Pulse Resp B/P (MAP) Pulse Ox O2 Delivery O2 Flow Rate FiO2 10/15/17 00:00 96.4 73 18 144/88 (106) 100 10/14/17 22:33 86 16 128/68 (88) 100 10/14/17 20:45 87 16 125/77 (93) 100 Room Air 10/14/17 19:00 99 16 129/80 (96) 100 Room Air 10/14/17 18:07 98 Room Air 10/14/17 16:53 97.4 111 18 140/93 (109) 99 Physical Exam GENERAL: This is a well-nourished, well-developed patient, in no apparent distress. SKIN: No rashes, ecchymoses or lesions. Cool and dry. HEAD: Atraumatic. Normocephalic. No temporal or scalp tenderness. EYES: Pupils equal round and reactive. Extraocular motions intact. No scleral icterus. No injection or drainage. ENT: Nose without bleeding, purulent drainage or septal hematoma. Throat without erythema, tonsillar hypertrophy or exudate. Uvula midline. Airway patent. NECK: Trachea midline. No JVD or lymphadenopathy. Supple, nontender, no meningeal signs. CARDIOVASCULAR: Regular rate and rhythm without murmurs, gallops, or rubs. RESPIRATORY: Clear to auscultation. Breath sounds equal bilaterally. No wheezes , rales, or rhonchi. GASTROINTESTINAL: Abdomen soft and nondistended. + mild TTP in the mid epigastric area No hepato-splenomegaly, or palpable masses. No guarding. MUSCULOSKELETAL: Extremities without clubbing, cyanosis, or edema. No joint tenderness, effusion, or edema noted. No calf tenderness. Negative Homans sign bilaterally. NEUROLOGICAL: Awake and alert. Cranial nerves II through XII intact. Motor and sensory grossly within normal limits. Five out of 5 muscle strength in all muscle groups. Normal speech. Laboratory Laboratory Tests Test 10/14/17 17:55 10/15/17 05:52 White Blood Count 8.0 6.7 Red Blood Count 4.69 4.44 Hemoglobin 16.6 15.2 Hematocrit 46.1 43.9 Mean Corpuscular Volume 98.2 99.0 Mean Corpuscular Hemoglobin 35.4 34.3 Mean Corpuscular Hemoglobin Concent 36.1 34.6 Red Cell Distribution Width 13.3 13.0 Platelet Count 282 281 Mean Platelet Volume 7.9 7.8 Neutrophils (%) (Auto) 67.1 62.3 Lymphocytes (%) (Auto) 22.7 25.6 Monocytes (%) (Auto) 7.2 8.3 Eosinophils (%) (Auto) 1.3 2.4 Basophils (%) (Auto) 1.7 1.4 Neutrophils # (Auto) 5.4 4.1 Lymphocytes # (Auto) 1.8 1.7 Monocytes # (Auto) 0.6 0.6 Eosinophils # (Auto) 0.1 0.2 Basophils # (Auto) 0.1 0.1 CBC Comment AUTO DIFF DIFF FINAL Differential Comment AUTO DIFF CONFIRMED Platelet Estimate NORMAL Platelet Morphology Comment NORMAL Urine Collection Type CLEAN CATCH Urine Color YELLOW Urine Turbidity SL CLOUDY Urine pH 6.5 Urine Specific [place] 1.015 Urine Protein TRACE Urine Glucose (UA) NEG Urine Ketones TRACE Urine Occult Blood NEG Urine Nitrite NEG Urine Bilirubin NEG Urine Urobilinogen 0.2 Urine Leukocyte Esterase NEG Urine Squamous Epithelial Cells 0-5 Urine Amorphous Sediment MOD Urine Mucus OCC Microscopic Urinalysis Comment CULT NOT INDICATED Blood Urea Nitrogen 11 12 Creatinine 0.84 0.76 Random Glucose 79 73 Total Protein 8.8 Albumin 3.9 Calcium Level 9.3 9.1 Alkaline Phosphatase 101 Aspartate Amino Transf (AST/SGOT) 13 Alanine Aminotransferase (ALT/SGPT) 12 Total Bilirubin 0.4 Sodium Level 132 136 Potassium Level 3.6 3.8 Chloride Level 100 106 Carbon Dioxide Level 21.8 22.1 Anion Gap 10 8 Estimat Glomerular Filtration Rate 101 114 Lipase 574 342 Result Diagram: 10/15/17 0552 10/15/17 0552 Imaging Last Impressions Abdomen/Pelvis CT 10/14/17 1737 Signed Impressions: Service Date/Time: Saturday, October 14, 2017 18:15 - CONCLUSION: Abnormal proximal pancreas with imaging features characteristic of acute on chronic pancreatitis. There is mild dilatation of the pancreatic duct body and tell up to 3.5 mm. Regional adenopathy and small caliber varices in the gastrohepatic ligament. Federico Young MD Gall Bladder Ultrasound 10/14/17 0000 Signed Impressions: Service Date/Time: Saturday, October 14, 2017 19:41 - CONCLUSION: 1. There is mild gallbladder wall thickening which appears mildly contracted. No pericholecystic fluid or cholelithiasis. 2. Pancreas not seen. 3. Borderline hepatomegaly. Federico Young MD Caprinkrystyna VTE Risk Assessment Caprini VTE Risk Assessment: Mod/High Risk (score >= 2) Caprini Risk Assessment Model Point Value = 1 Point Value = 2 Point Value = 3 Point Value = 5 Age 41-60 Minor surgery BMI > 25 kg/m2 Swollen legs Varicose veins or History of unexplained or recurrent spontaneous Oral contraceptives or hormone replacement Sepsis (< 1 month) Serious lung disease, including pneumonia (< 1 month) Abnormal pulmonary function Acute myocardial infarction Congestive heart failure (< 1 month) History of inflammatory bowel disease Medical patient at bed rest Age 61-74 Arthroscopic surgery Major open surgery (> 45 min) Laparoscopic surgery (> 45 min) Malignancy Confined to bed (> 72 hours) Immobilizing plaster cast Central venous access Age >= 75 History of VTE Family history of VTE Factor V Leiden Prothrombin [id number] Lupus anticoagulant Anticardiolipin antibodies Elevated serum homocysteine Heparin-induced thrombocytopenia Other congenital or acquired thrombophilia Stroke (< 1 month) Elective arthroplasty Hip, pelvis, or leg fracture Acute spinal cord injury (< 1 month) Prophylaxis Regimen Total Risk Factor Score Risk Level Prophylaxis Regimen 0-1 Low Early ambulation 2 Moderate Order ONE of the following: *Sequential Compression Device (SCD) *Heparin 5000 units SQ BID 3-4 Higher Order ONE of the following medications: *Heparin 5000 units SQ TID *Enoxaparin/Lovenox 40 mg SQ daily (WT < 150 kg, CrCl > 30 mL/min) *Enoxaparin/Lovenox 30 mg SQ daily (WT < 150 kg, CrCl > 10-29 mL/min) *Enoxaparin/Lovenox 30 mg SQ BID (WT < 150 kg, CrCl > 30 mL/min) AND/OR *Sequential Compression Device (SCD) 5 or more Highest Order ONE of the following medications: *Heparin 5000 units SQ TID (Preferred with Epidurals) *Enoxaparin/Lovenox 40 mg SQ daily (WT < 150 kg, CrCl > 30 mL/min) *Enoxaparin/Lovenox 30 mg SQ daily (WT < 150 kg, CrCl > 10-29 mL/min) *Enoxaparin/Lovenox 30 mg SQ BID (WT < 150 kg, CrCl > 30 mL/min) AND *Sequential Compression Device (SCD) Assessment and Plan Assessment and Plan This is a 42-year-old male with chronic pancreatitis and alcoholic abuse who presented with abdominal pain Acute on chronic pancreatitis, mild -Symptoms are only abdominal pain. No nausea or vomiting. Patient able to tolerate oral intake. -Labs reviewed. No leukocytosis. Lipase initially [address] scan of the abdomen/pelvis reviewed suggests acute on chronic pancreatitis. Ultrasound gallbladder shows mildly contracted gallbladder but no pericholecystic fluid cholelithiasis. -At the moment there is a drastic improvement in his symptoms and patient asking to go home. -We will start with clear liquid diet and advance as tolerated. -If patient is able to tolerate diet he can be discharged home. Encourage alcoholic cessation. Patient stated that he would no longer drink alcohol. He stated that he did not know he was not supposed to drink alcohol in order to prevent another episode of pancreatitis. Alcohol abuse -Alcohol cessation. Education given. Patient stated that he would no longer drink. Tobacco dependence -Tobacco cessation. DVT prophylaxis -SCDs. Discussed Condition With Patient. Elayne Oglesby MD Oct 15, 2017 09:21
[2017-10-15] MEDS ORDERED: HYDR-3516 PO (09:26)
--- NOTE | 2017-10-15 09:27 | HHI.DCPOC ---
Discharge Care Plan Diagnosis: (1) Acute pancreatitis (2) Alcohol abuse Goals to Promote Your Health * To prevent worsening of your condition and complications * To maintain your health at the optimal level Directions to Meet Your Goals Take your medications as prescribed Follow your dietary instruction Follow activity as directed Keep your appointments as scheduled Take your immunizations and boosters as scheduled If your symptoms worsen call your PCP, if no PCP go to Urgent Care Center or Emergency Room Smoking is Dangerous to Your Health. Avoid second hand smoke Call the 24-hour hour crisis hotline for domestic abuse at Elayne Oglesby MD Oct 15, 2017 09:27
[2017-10-15 12:00] VITALS: BP 114/72; PULSE 81; RESP 18; TEMP 97.2; O2SAT 98
== END 2017-10-15 13:33 | disposition home or self-care (01) | DRG 440 ==
LOC: PHED 16:48 → PHEDA 20:46 → PH3A 22:38
PROVIDERS: ADMIT Family Medicine; ATTEND Family Medicine
DX: K85.20 Alcohol induced acute pancreatitis without necrosis or infection (principal); F10.20 Alcohol dependence, uncomplicated; K86.0 Alcohol-induced chronic pancreatitis; F17.210 Nicotine dependence, cigarettes, uncomplicated; Z80.0 Family history of malignant neoplasm of digestive organs
CPT/HCPCS: 74177; 76705; 80048; 80053; 81001; 83690; 85025; 96361; 96374; 96375; J1885; J2060; J2270; J2405; J3411; J7030; Q9967

== ENCOUNTER 2017-10-18 15:03 | Emergency (ER) | payer MEDICAID ==
[~2017-10-18] VITALS: Ht 177.8 cm; Wt 75.9 kg
[~2017-10-18 15:03] MED LIST changes: +HYDR-3516 PO; -TRAM50TA PO
[2017-10-18 15:08] VITALS: BP 132/83; PULSE 138; RESP 16; TEMP 97.8; O2SAT 99
--- NOTE | 2017-10-18 15:41 | PD ---
HPI Chief Complaint: Abdominal Pain Time Seen by Provider: 15:23 Travel History International Travel<30 days: No Contact w/Intl Traveler<30days: No Traveled to known affect area: No History of Present Illness HPI This 42-year-old male is complaining of epigastric and right upper quadrant pain. He was a patient in the emergency department on October 14 with similar complaints. At time he had an ultrasound which showed some mild gallbladder wall thickening which appeared contracted without pericholecystic fluid or cholelithiasis. He had a CT which showed abnormal proximal pancreas suggestive of acute on chronic pancreatitis. He was admitted overnight. He says he was discharged with prescription for Lortab. He says the Lortab is not helping his pain. He says that he had one previous episode of pancreatitis about 9 months ago and then he was okay until last Monday. He has denied on repeated questioning any alcohol for the last 5 days. He does say the prior to being admitted on Monday that he was taking a lot of aspirin because of the abdominal pain. He says the pain is severe and aggravated by eating he says he has not been able to eat PFSH Past Medical History Cancer: No Cardiovascular Problems: No Diminished Hearing: No Endocrine: No Gastrointestinal Disorders: Yes GERD: Yes Genitourinary: No Hiatal Hernia: No Immune Disorder: No Neurologic: No Psychiatric: No Reproductive: No Respiratory: No Pancreatitis: Yes Ulcer: No Tetanus Vaccination: Unknown Influenza Vaccination: No Social History Alcohol Use: Yes (heavy states 4-6 beers per day) Tobacco Use: Yes (1PPD) Substance Use: No (DENIES) Allergies-Medications (Allergen,Severity, Reaction): Coded Allergies: No Known Allergies (Verified Adverse Reaction, Unknown, 10/18/17) Reported Meds & Prescriptions Reported Meds & Active Scripts Active Review of Systems General / Constitutional: No: Fever, Chills Eyes: No: Diploplia, Blurred Vision HENT: No: Headaches, Vertigo Cardiovascular: Positive: Chest Pain or Discomfort Respiratory: No: Cough, Shortness of Breath Gastrointestinal: Positive: Nausea, Abdominal Pain Genitourinary: No: Urgency, Frequency Musculoskeletal: No: Myalgias, Arthralgias Skin: No Itching, No Dryness Neurologic: No: Weakness, Dizziness Psychiatric: Positive: Substance Abuse Endocrine: No: Cold Intolerance Hematologic/Lymphatic: No: Easy Bruising Physical Exam Narrative GENERAL: Well-developed male complaining of pain. SKIN: Focused skin assessment warm/dry. HEAD: Atraumatic. Normocephalic. EYES: Pupils equal and round. No scleral icterus. No injection or drainage. ENT: No nasal bleeding or discharge. Mucous membranes pink and moist. NECK: Trachea midline. No JVD. CARDIOVASCULAR: Regular rate and rhythm. No murmur appreciated. RESPIRATORY: No accessory muscle use. Clear to auscultation. Breath sounds equal bilaterally. GASTROINTESTINAL: Abdomen soft, there is epigastric and right upper quadrant tenderness without guarding or rigidity nondistended. Hepatic and splenic margins not palpable. MUSCULOSKELETAL: No obvious deformities. No clubbing. No cyanosis. No edema. NEUROLOGICAL: Awake and alert. No obvious cranial nerve deficits. Motor grossly within normal limits. Normal speech. PSYCHIATRIC: Appropriate mood and affect; insight and judgment normal. Data Data Last Documented VS Vital Signs Date Time Temp Pulse Resp B/P (MAP) Pulse Ox O2 Delivery O2 Flow Rate FiO2 10/18/17 15:08 97.8 138 16 132/83 (99) 99 Orders Orders Complete Blood Count With Diff (10/18/17 15:32) Comprehensive Metabolic Panel (10/18/17 15:32) Lipase (10/18/17 15:32) Alcohol (Ethanol) (10/18/17 15:32) MDM Medical Decision Making Medical Screen Exam Complete: Yes Emergency Medical Condition: Yes Medical Record Reviewed: Yes Differential Diagnosis Differential includes pancreatitis, chronic pancreatitis, gastritis Narrative Course I have ordered lab work to reassess his lipase level. I have also ordered an alcohol level and concerned that the patient may be continuing to drink though he is adamantly denied this on several occasions with me. Srinivas Morrow MD Oct 18, 2017 15:41
[2017-10-18] MEDS ORDERED: SODIUM CHLOR 0.9% 1000 ML INJ 1,000 ML IV ONE (15:45)
[2017-10-18] MEDS ORDERED: ONDANSETRON HCL 4 MG/2 ML VIAL IV PUSH ONE (15:45)
[2017-10-18 16:07] LABS: AUTOMATED NEUTROPHIL # 6.7 TH/MM3 (1.8-7.7); BASOPHIL # 0.4 TH/MM3 (0-0.2); BASOPHIL % 4.4 % (0.0-2.0); EOSINOPHIL # 0.1 TH/MM3 (0-0.4); EOSINOPHIL % 1.5 % (0.0-4.0); HEMOGLOBIN 16.3 GM/DL (13.0-17.0); LYMPH % 16.3 % (9.0-44.0); LYMPHOCYTE # 1.5 TH/MM3 (1.0-4.8); MEAN CORPUSCULAR HEMOGLOBIN 33.3 PG (27.0-34.0); MEAN PLATELET VOLUME 7.8 FL (7.0-11.0); MONOCYTE # 0.7 TH/MM3 (0-0.9); NEUT % 70.8 % (16.0-70.0); PLATELET COUNT 313 TH/MM3 (150-450); RED CELL DISTRIBUTION WIDTH 12.4 % (11.6-17.2); WHITE BLOOD COUNT 9.4 TH/MM3 (4.0-11.0)
[2017-10-18 16:50] LABS: ALBUMIN 3.7 GM/DL (3.4-5.0); ALKALINE PHOSPHATASE 121 U/L (45-117); ALT (GPT) 16 U/L (12-78); AST (GOT) 40 U/L (15-37); BICARBONATE 23.8 MEQ/L (21.0-32.0); BLOOD UREA NITROGEN 7 MG/DL (7-18); CALCIUM 9.4 MG/DL (8.5-10.1); CHLORIDE 101 MEQ/L (98-107); CREATININE 0.85 MG/DL (0.60-1.30); GLOMERULAR FILTRATION RATE 100 ML/MIN (>89); GLUCOSE,RANDOM 115 MG/DL (74-106); SODIUM (NA) 131 MEQ/L (136-145); TOTAL BILIRUBIN ADULT 0.5 MG/DL (0.2-1.0); TOTAL PROTEIN 8.9 GM/DL (6.4-8.2)
[2017-10-18 17:00] VITALS: BP 148/102; PULSE 101; RESP 16; O2SAT 100
[2017-10-18] MEDS ORDERED: PANTOPRAZOLE SODIUM 40 MG VIAL IV PUSH ONE (17:00)
[2017-10-18] MEDS ORDERED: MORPHINE SULFATE 2 MG/ML INJ IV PUSH ONE (17:00)
[2017-10-18] MEDS ORDERED: ALUMINUM/MAGNESIUM/SIMETH 30 ML CUP PO ONE (17:00)
[2017-10-18] MEDS ORDERED: LIDOCAINE VISCOUS 2% SOLN 15 ML UDC PO ONE (17:00)
--- NOTE | 2017-10-18 17:04 | PD ---
Data Data Last Documented VS Vital Signs Date Time Temp Pulse Resp B/P (MAP) Pulse Ox O2 Delivery O2 Flow Rate FiO2 10/18/17 17:21 108 16 135/89 (104) 98 Room Air 10/18/17 15:08 97.8 Orders Orders Complete Blood Count With Diff (10/18/17 15:32) Comprehensive Metabolic Panel (10/18/17 15:32) Lipase (10/18/17 15:32) Alcohol (Ethanol) (10/18/17 15:32) Sodium Chlor 0.9% 1000 Ml Inj (Ns 1000 M (10/18/17 15:45) Ondansetron Inj (Zofran Inj) (10/18/17 15:45) Morphine Inj (Morphine Inj) (10/18/17 17:00) Pantoprazole Inj (Protonix Inj) (10/18/17 17:00) Al-Mag Hy-Si 40-40-4 Mg/Ml Liq (Mag-Al P (10/18/17 17:00) Lidocaine 2% Viscous (Xylocaine 2% Visco (10/18/17 17:00) Mandatory Outpatient Referral (10/18/17 16:59) Labs Laboratory Tests Test 10/18/17 15:50 White Blood Count 9.4 TH/MM3 Red Blood Count 4.90 MIL/MM3 Hemoglobin 16.3 GM/DL Hematocrit 48.0 % Mean Corpuscular Volume 98.0 FL Mean Corpuscular Hemoglobin 33.3 PG Mean Corpuscular Hemoglobin Concent 34.0 % Red Cell Distribution Width 12.4 % Platelet Count 313 TH/MM3 Mean Platelet Volume 7.8 FL Neutrophils (%) (Auto) 70.8 % Lymphocytes (%) (Auto) 16.3 % Monocytes (%) (Auto) 7.0 % Eosinophils (%) (Auto) 1.5 % Basophils (%) (Auto) 4.4 % Neutrophils # (Auto) 6.7 TH/MM3 Lymphocytes # (Auto) 1.5 TH/MM3 Monocytes # (Auto) 0.7 TH/MM3 Eosinophils # (Auto) 0.1 TH/MM3 Basophils # (Auto) 0.4 TH/MM3 CBC Comment DIFF FINAL Differential Comment Blood Urea Nitrogen 7 MG/DL Creatinine 0.85 MG/DL Random Glucose 115 MG/DL Total Protein 8.9 GM/DL Albumin 3.7 GM/DL Calcium Level 9.4 MG/DL Alkaline Phosphatase 121 U/L Aspartate Amino Transf (AST/SGOT) 40 U/L Alanine Aminotransferase (ALT/SGPT) 16 U/L Total Bilirubin 0.5 MG/DL Sodium Level 131 MEQ/L Potassium Level 4.7 MEQ/L Chloride Level 101 MEQ/L Carbon Dioxide Level 23.8 MEQ/L Anion Gap 6 MEQ/L Estimat Glomerular Filtration Rate 100 ML/MIN Lipase 511 U/L Ethyl Alcohol Level LESS THAN 3 MG/DL [facility] Supervised Visit with HERBIE: No Narrative Course The patient was initially evaluated by the previous provider and signed out to me at the beginning of my shift pending labs and disposition. See his note for further details. Briefly this is a 42-year-old male with history of alcoholism with recent admission on 10/14/17 for acute on chronic pancreatitis, discharged on 10/15/17, here for evaluation of epigastric abdominal pain consistent with pancreatitis pain. Pain is sharp/cramping, radiates to his right upper quadrant and left upper quadrant as well as epigastric region. It is worse with movements. He denies vomiting or hematemesis. He is adamant that he has not had an alcoholic beverage in over 5 days. On physical exam he appears comfortable he does have some mild epigastric tenderness, right upper quadrant and left upper quadrant tenderness without peritoneal signs. Initial vital signs show heart rate 138 which improve to 101 after a liter of normal saline IV, blood pressure 132/83, pulse ox 99% on room air, oral temp of 97.8F. CBC is unremarkable. CMP is remarkable for sodium 131, otherwise essentially unremarkable. Lipase is 511. Alcohol level is negative. CT abdomen pelvis from 10/14/17 shows abnormal proximal pancreas with imaging features characteristic of acute on chronic pancreatitis with mild dilatation of the pancreatic duct body and tail up to 3.5 mm, regional adenopathy and small caliber varices in the gastrohepatic ligament. Patient was given Zofran and a liter of normal saline IV by the previous provider. Again on my exam he appears comfortable. Use of some mild epigastric tenderness. He states he just wants his pain to be controlled and does not want to be admitted. He was given Lortab upon discharge from his previous admission, however he states that this no longer helps with his pain. He will be given a dose of morphine, a GI cocktail, as well as IV Protonix will be reassessed. Reassessment the patient feels somewhat improved. Again there are no peritoneal signs on this exam. This is likely acute on chronic pancreatitis. Plan is to discharge him home with a prescription for Percocet and Protonix. He states that his insurance is in [place] and he is unable to see a GI specialist here with it. A mandatory referral will be made for him. He was also requesting patient assistance. He is stable for discharge home and was advised on when to return to the emergency department. He verbalizes understanding and agreement with plan. Diagnosis Primary Impression: Chronic pancreatitis Qualified Codes: K86.0 - Alcohol-induced chronic pancreatitis Referrals: Aminah Boyd MD 3 days Working Supervisor Primary Care Physician 3 days Additional Instruction: Follow-up with java systems analyst Dr. Jordan or a java systems analyst of your choice this week. Do not drink alcohol. Return to the emergency department for worsening symptoms or any other concerns. Scripts Oxycodone-Acetaminophen (Percocet) 10-325 mg Tab 1 TAB PO Q6H Y for PAIN, #12 TAB 0 Refills Prov: Hilario Ortiz MD 10/18/17 Pantoprazole (Protonix) 40 Mg Tab 40 MG PO DAILY for Reflux, #30 TAB 0 Refills Prov: Hilario Ortiz MD 10/18/17 Disposition: 01 DISCHARGE HOME Condition: Stable Hilario Ortiz MD Oct 18, 2017 17:04
[2017-10-18 17:21] VITALS: BP 135/89; PULSE 108; RESP 16; O2SAT 98
[2017-10-18] MEDS ORDERED: PERC10TA27 PO (17:40)
[2017-10-18] MEDS ORDERED: PROT40TA PO (17:40)
[2017-10-18 17:56] VITALS: BP 143/92; PULSE 85; RESP 16; O2SAT 100
== END 2017-10-18 18:00 | disposition home or self-care (01) ==
LOC: PHED 15:03
DX: K86.0 Alcohol-induced chronic pancreatitis (principal); F17.210 Nicotine dependence, cigarettes, uncomplicated
CPT/HCPCS: 80053; 80307; 83690; 85025; 96361; 96374; 96375; 99284; C9113; J2270; J2405; J7030